=== PATIENT | female | born 1995 | race Hispanic/Latino ===

== ENCOUNTER 2017-08-01 09:42 | Emergency (ER) | payer BC ==
[~2017-08-01] VITALS: Ht 152.4 cm; Wt 42.8 kg
[~2017-08-01 09:42] MED LIST: ACETAMINOPHEN325 M1 PO; HYDROCODON-ACE1 EAC7 PO; IBUPROFEN600 MG PO; MULTIVITAMIN1 EAC2 PO; PHENERGAN25 MG PR
[2017-08-01 10:09] LABS: HEMOGLOBIN 13.4 G/DL (11.9-15.5); MCH 25.7 PG (29.0-34.0); MCHC 31.9 G/DL (30.0-36.0); MCV 80.5 FL (83-99); PLATELET COUNT 258 K/uL (156-360); RBC DIS.WIDTH-CV 13.5 % (11.8-14.6); RBC DIS.WIDTH-SD 39.4 % (39-53); RED BLOOD COUNT 5.22 M/uL (3.80-5.20); WHITE BLOOD COUNT 5.2 K/uL (4.1-10.2)
[2017-08-01 10:11] LABS: APPEARANCE CLEAR ((CLEAR)); BILIRUBIN NEGATIVE; BLOOD NEGATIVE; COLOR YELLOW ((YELLOW)); GLUCOSE (STRIP) NEGATIVE; KETONES NEGATIVE; LEUKOCYTES NEGATIVE; NITRITE NEGATIVE; PROTEIN (STRIP) NEGATIVE; SPECIFIC GRAVITY 1.024 (1.000-1.030); UCUL ADDED? NO; UROBILINOGEN 0.2 MG/DL (0.2-1.0)
[2017-08-01 10:20] LABS: ALBUMIN 4.2 g/dL (3.2-4.8); CHLORIDE 105 mEq/L (99-109); POTASSIUM 4.4 mEq/L (3.7-5.4); SODIUM 139 mEq/L (136-147)
[2017-08-01 10:22] LABS: GLUCOSE 85 mg/dL (70-99)
[2017-08-01 10:23] LABS: TOTAL PROTEIN 7.3 g/dL (6.4-8.3)
[2017-08-01 10:24] LABS: TOTAL BILIRUBIN 0.6 mg/dL (0.0-1.0)
[2017-08-01 10:26] LABS: ALKALINE PHOSPHATASE 56 IU/L (3-129); CREATININE 0.8 mg/dL (0.6-1.3); GFR ESTIMATE (CALCULATED) > 59 mL/min/
[2017-08-01 10:27] LABS: UREA NITROGEN (BUN) 12 mg/dL (9-23)
[2017-08-01 10:28] LABS: AST (GOT) 26 IU/L (2-34)
[2017-08-01 10:29] LABS: ALT (GPT) 13 IU/L (3-49)
[2017-08-01 10:35] LABS: QUANTITATIVE HCG < 4.0 MIU/ML
[2017-08-01] MEDS ORDERED: MOTRIN600 MG PO (13:24)
[2017-08-01 13:37] VITALS: BP 113/80
== END 2017-08-01 13:40 | disposition home or self-care (01) ==
LOC: EME 09:42
DX: R10.2 Pelvic and perineal pain (principal); R11.0 Nausea; R51 Headache; R19.7 Diarrhea, unspecified; N92.6 Irregular menstruation, unspecified; R35.0 Frequency of micturition
CPT/HCPCS: 76856; 80053; 81003; 84702; 85027; 99281; 99284